=== PATIENT | male | born 1990 | race Caucasian/White ===

== ENCOUNTER → 2023-03-17 | Outpatient (CLI) | payer OTHER, SELFPAY ==
--- NOTE | 2023-03-17 11:55 | RAD_ITS ---
STUDY: X-RAY - RIGHT KNEE REASON FOR EXAM: Male, 33 years old. Right medial knee pain following a fall. TECHNIQUE: 3 view(s) of the knee. COMPARISON: None. FINDINGS: Normal visualized distal femur. Normal visualized proximal tibia and fibula. Normal proximal tibiofibular articulation. Normal medial femorotibial compartment. Normal lateral femorotibial compartment. Normal patellofemoral articulation. Minimal joint effusion. RAD/Knee 3 Views IMPRESSION: Minimal joint effusion. Electronically Signed: Nick Escalante MD at 12:09 EDT ,
== END | disposition home or self-care (01) ==
LOC: MTRAD 11:52
PROVIDERS: Referring Provider Physician Assistant; Visit Provider Physician Assistant
DX: T14.90XA Injury, unspecified, initial encounter (principal)
CPT/HCPCS: 73562

== ENCOUNTER 2023-04-08 10:30 | Outpatient (RCR) | payer OTHER, SELFPAY ==
--- NOTE | 2023-03-18 10:33 | HP.PTEVAL_ITS ---
Patient's Visit Information Visit Information Visit Information: ILYA GO is a 33 year old M referred to Physical Therapy by DAKOTA Sprague with a diagnosis of R knee pain. Date of Evaluation: 03/18/23 Physical Therapist: Lorenzo Benavidez, PT, ATC Visit Plan Frequency: 2-3x /Week Duration: 4-6 Weeks Plan: R knee strengthening, core stab ex's, balance and proprio, nustep, and HEP Subjective Subjective: Pt reports of R knee P! which started this past 03/15/2023. Pt. was hit by his 100lb Pitbull. The R knee buckled laterally, he heard a pop and fell. 1/10 at rest, 9/10 up and down stairs, awkward movements, getting out of the car. P! is not keeping the pt. up at night whenever he is in bed laid flat. X--rays came back normal and looked good. No MRI done. 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 P! at work is felt when carrying items downstairs, other than that it is fine. Pt. reports that his knee feels like it wants to give out to the side and he feels popping on the medial knee when he flexes his knee. Main goal is to be able to squat down and work normally without P!. Pain R knee: Pain Intensity (Out of 10): 1 Pain Intensity Range: 9 Objective Objective: ROM: R knee 0-86, L knee 0-145 MMT: R knee flex= 23, ext= 59 #F; L knee flex= 48, ext= 61 #F Neuro: Reflexes WNL. Sensation WNL to light touch Palpation: peripatellar effusion noted Special tests: Pos Micha's test, pos valgus test, Balance/Special Test Scores Lower Extremity Functional Score: 37 Goals Goal 1:: Decrease R knee pain x 50% to aid with ambulation Goal Time Frame: 4-6 Weeks Goal 2:: Increase R knee flexion ROM x 30 degrees to aid with squatting type activity Goal Time Frame: 4-6 Weeks Goal 3:: Increase R knee strength x 10 #F to aid with RTW without limitation Goal Time Frame: 4-6 Weeks Goal 4:: I with HEP Goal Time Frame: 4-6 Weeks Rehabilitation Potential Physical Therapy Diagnosis: Pt has R knee pain, weakness, and limited ROM secondary to R knee sprain. Rehabilitation Potential: Good Anticipated Interventions Patient/Client Instruction: Educate patient on: Condition and Plan of Care For the Purpose of:: To improve self management Therapeutic Exercise to Include: Strength training, Endurance training, Balance training, Gait and locomotor training, Active ROM and Dynamic Lumbar Stabilization For the Purpose of:: To decrease pain, To increase ROM and To improve muscle performance and motor function Cryotherapy (ice pack, ice massage): Yes For the Purpose of:: To decrease pain Text: Thank you for the opportunity to evaluate your patient. For Medicare and Medicare HMO plans, please review the plan of care and approve it. It will need to be FAXED BACK to us at [phone] for Medicare purposes. For Medicare only, by signing this I certify the plan of care. Please let me know if there are questions or concerns regarding this plan of care. Physician Signature: Date:
--- NOTE | 2023-06-25 09:08 | HP.PT.NRP ---
Patient Information Patient Information: ILYA GO was seen in my office for initial evaluation on 03/18/23. The following Plan of Care was established for this patient: POC Established Initial Frequency: 2-3x /Week Initial Duration: 4-6 Weeks Anticipated Interventions Patient/Client Instruction: Educate patient on: Condition and Plan of Care For the Purpose of:: To improve self management Therapeutic Exercise to Include: Strength training, Endurance training, Balance training, Gait and locomotor training, Active ROM and Dynamic Lumbar Stabilization For the Purpose of:: To decrease pain, To increase ROM and To improve muscle performance and motor function Cryotherapy (ice pack, ice massage): Yes For the Purpose of:: To decrease pain Last Seen Last Seen: This patient was last seen in our office . Pertinent comments regarding their Physical therapy will appear below: Pt was treated for 6 PT visits for R knee pain through the date of 04/08/23. Pt has not returned through todays date and is discontinued at this time. At this point I will be discontinuing this patient from physical therapy. I would be happy to see this patient again in the future if found appropriate by the physician. Thank you! Lorenzo Benavidez, PT, ATC Balance/Gait/Functional tests Balance/Special Test Scores Lower Extremity Functional Score: 37
== END 2023-04-08 19:00 | disposition home or self-care (01) ==
LOC: PT 10:30
PROVIDERS: Referring Provider Physician Assistant; Visit Provider Physician Assistant
DX: S86.911D Strain of unspecified muscle(s) and tendon(s) at lower leg level, right leg, subsequent encounter (principal)
CPT/HCPCS: 97110; 97161; 97530